=== PATIENT | female | born 1965 ===

== ENCOUNTER 2019-09-21 20:29 | Emergency (ER) | payer MEDICAID ==
[2019-09-21] MEDS ORDERED: Fluorescein 1 MG Ophth Strip EYERT ONE (20:42)
[2019-09-21] MEDS ORDERED: Tetracaine HCl/PF 0.5% 4 ML Bottle EYERT ONE (20:42)
--- NOTE | 2019-09-21 21:08 | EDM.PDOC ---
ED HPI GENERAL MEDICAL PROBLEM - General Chief Complaint: Eye Problems Stated Complaint: SOMETHING IN RIGHT EYE Time Seen by Provider: 09/21/19 21:02 Source of Information: Reports: Patient History Limitations: Reports: No Limitations - History of Present Illness INITIAL COMMENTS - FREE TEXT/NARRATIVE: got something in right eye while mowing and wind blew. Right Eye Pain Score (Numeric/FACES): 9 - Related Data Allergies Allergy/AdvReac Type Severity Reaction Status Date / Time No Known Allergies Allergy Verified 09/21/19 20:35 Home Meds: Home Meds Glimepiride 2 mg PO DAILY 09/21/19 [History] amLODIPine Besylate [Amlodipine Besylate] 5 mg PO DAILY 09/21/19 [History] metFORMIN HCl [Metformin HCl] 500 mg PO BID 09/21/19 [History] Past Medical History Cardiovascular History: Reports: Hypertension, [place] Endocrine/Metabolic History: Reports: Diabetes, Type II, Obesity/BMI 30+ Social & Family History - Tobacco Use Smoking Status *Q: Former Smoker Used Tobacco, but Quit: Yes Month/Year Tobacco Last Used: 2016 Second Hand Smoke Exposure: No - Recreational Drug Use Recreational Drug Use: No ED ROS GENERAL - Review of Systems Review Of Systems: Comprehensive ROS is negative, except as noted in HPI. ED EXAM GENERAL W FULL EYE - Physical Exam Exam: See Below Exam Limited By: No Limitations General Appearance: Alert, WD/WN, Mild Distress, Other (discomfort) Eye Exam: Bilateral Eye: PERRL (pupils ER @ 4mm) Eyelids: Right: Lid Everted for Exam (no f/b noted) Conjunctiva & Sclera: Right: Injected Cornea Exam: Right: Corneal Abrasion (medial superior), Examined with Flourescein Extraocular Movements: Bilateral: Intact Pupillary Size: Bilateral: 4 mm Pupillary Reaction: Bilateral: Brisk Anterior Chamber: Bilateral: Normal Appearance Ears: Hearing Grossly Normal Throat/Mouth: Normal Voice, No Airway Compromise Head: Atraumatic Neck: Non-Tender, Full Range of Motion Respiratory/Chest: No Respiratory Distress Cardiovascular: Regular Rate, Rhythm GI/Abdominal: Soft, Non-Tender Neurological: Alert, Oriented, Normal Cognition, Normal Gait, No Motor/Sensory Deficits Psychiatric: Normal Affect, Normal Mood Skin Exam: Warm, Dry, Normal Color Lymphatic: No Adenopathy Course - Vital Signs Last Recorded V/S: Last Vital Signs Temp 36.1 C 09/21/19 20:32 Pulse 89 09/21/19 20:32 Resp 18 09/21/19 20:32 BP 134/80 09/21/19 20:32 Pulse Ox 97 09/21/19 20:32 - Orders/Labs/Meds Orders: Active Orders 24 hr Category Date Time Status Gentamicin [Gentak 0.3% Ophth Oint] Med 09/22/19 21:01 Once 0.2 gm EYERT ONETIME ONE Meds: Medications Discontinued Medications Generic Name Dose Route Start Last Admin Trade Name Laurita PRN Reason Stop Dose Admin Fluorescein Sodium 1 mg 09/21/19 20:42 09/21/19 21:01 Ful-Belle EYERT 09/21/19 20:43 1 mg ONETIME ONE Administration Tetracaine HCl 1 ml 09/21/19 20:42 09/21/19 20:47 Tetracaine 0.5% Steri-Unit Fawn EYERT 09/21/19 20:43 1 ml ASDIRECTED ONE Administration Departure - Departure Time of Disposition: 21:06 Disposition: Home, Self-Care 01 Condition: Good Clinical Impression: Corneal abrasion Qualifiers: Encounter type: initial encounter Laterality: right Qualified Code(s): S05.01XA - Injury of conjunctiva and corneal abrasion without foreign body, right eye, initial encounter - Discharge Information Instructions: Corneal Abrasion, [id number] Additional Instructions: 1) wear eye patch tonight and remove tomorrow. 2) may remove if it becomes too uncomfortable 3) use eye drops tomorrow 4) recheck if eye still feels uncomfortable tomorrow. rx given; gentamycin eye drops 2 drops right eye qid x 3 days Sepsis Event Note - Evaluation Sepsis Screening Result: No Definite Risk - Focused Exam Vital Signs: Vital Signs Temp Pulse Resp BP Pulse Ox 09/21/19 20:32 36.1 C 89 18 134/80 97 Date Exam was Performed: 09/21/19 Time Exam was Performed: 21:02 - My Orders Last 24 Hours: My Active Orders 09/22/19 21:01 Gentamicin [Gentak 0.3% Ophth Oint] 0.2 gm EYERT ONETIME ONE - Assessment/Plan Last 24 Hours: My Active Orders 09/22/19 21:01 Gentamicin [Gentak 0.3% Ophth Oint] 0.2 gm EYERT ONETIME ONE
== END 2019-09-21 21:20 | disposition home or self-care (01) ==
LOC: DL.ED 20:29
DX: S05.01XA Injury of conjunctiva and corneal abrasion without foreign body, right eye, initial encounter (principal); I10 Essential (primary) hypertension; I25.2 Old myocardial infarction; E11.9 Type 2 diabetes mellitus without complications; Z79.84 Long term (current) use of oral hypoglycemic drugs; E66.9 Obesity, unspecified; Z87.891 Personal history of nicotine dependence; Z68.39 Body mass index [BMI] 39.0-39.9, adult; X58.XXXA Exposure to other specified factors, initial encounter; Z79.899 Other long term (current) drug therapy
CPT/HCPCS: 99283